=== PATIENT | male | born 1960 | race Caucasian/White ===

== ENCOUNTER 2019-03-01 07:21 | Day surgery (SDC) | payer OTHER ==
[~2019-03-01] VITALS: Ht 177.8 cm; Wt 122.7 kg
[~2019-03-01 07:21] MED LIST: AMLO10 PO; AMLO5; ANDROGEL75 GM; ATOR80 PO; CHOL10002; CITA20; CYAN1000; DAILY MULTIPLE1 EACH; METF500; METF500 PO; Simvastatin20 MG; Viagra100 MG; ZESTORETIC 20-1 EAC1 PO; ZESTORETIC 20-121 EA
[2019-03-01] MEDS ORDERED: Vitamin D2000 UNIT (07:49)
== END 2019-03-01 09:25 | disposition home or self-care (01) ==
LOC: ORSCSDS 07:21
PROVIDERS: Surgery
PROC: 0DJD8ZZ Inspection of Lower Intestinal Tract, Via Natural or Artificial Opening Endoscopic (ICD-10-PCS; principal; 2019-03-01 08:30)
DX: Z12.11 Encounter for screening for malignant neoplasm of colon (principal); Z86.010 Personal history of colon polyps; D12.3 Benign neoplasm of transverse colon; E11.9 Type 2 diabetes mellitus without complications; E78.5 Hyperlipidemia, unspecified; I10 Essential (primary) hypertension; F32.9 Major depressive disorder, single episode, unspecified; Z79.84 Long term (current) use of oral hypoglycemic drugs; Z79.899 Other long term (current) drug therapy
CPT/HCPCS: 82947; 88305; J2405; J2704; J7120